=== PATIENT | female | born 1960 | race Caucasian/White ===

== ENCOUNTER 2017-01-14 11:26 | Emergency (ER) | payer MEDICAID ==
[~2017-01-14] VITALS: Ht 162.6 cm; Wt 49.1 kg
[~2017-01-14 11:26] MED LIST: CARB200T PO; CLON1TAB23 PO; PARO10TA56 PO; RISP1TAB45 PO; TRAZ50TA18 PO
[2017-01-14] MEDS ORDERED: ALBUTEROL/IPRATROPIUM 2.5MG/0.5MG, 3 ML NPPB ONE (12:30)
[2017-01-14] MEDS ORDERED: ALBUTEROL/IPRATROPIUM 2.5MG/0.5MG, 3 ML ONE (12:46)
[2017-01-14 12:53] VITALS: BP 116/81
== END 2017-01-14 13:12 | disposition home or self-care (01) ==
LOC: ED 12:10
DX: J44.1 Chronic obstructive pulmonary disease with (acute) exacerbation (principal); J20.9 Acute bronchitis, unspecified; F17.210 Nicotine dependence, cigarettes, uncomplicated; E87.6 Hypokalemia; E87.1 Hypo-osmolality and hyponatremia
CPT/HCPCS: 71020; 93005; 94640; 99284; J7512; J7620

== ENCOUNTER 2017-03-17 15:54 | Observation (INO) | payer MEDICAID ==
[~2017-03-17] VITALS: Ht 167.6 cm; Wt 50.0 kg
[2017-03-17] MEDS ORDERED: LORazepam 2 MG/ML, 1ML ONE (16:29)
[2017-03-17] MEDS ORDERED: LORazepam 2 MG/ML, 1ML IM ONE (16:30)
[2017-03-17 16:58] LABS: AMPHETAMINE SCREEN, URINE Negative (Negative); BARBITURATE SCREEN, URINE Negative (Negative); BENZODIAZEPINE SCREEN, URINE Negative (Negative); CANNABINOID SCREEN, URINE Positive (Negative); COCAINE SCREEN, URINE Negative (Negative); METHADONE SCREEN, URINE Negative (Negative); OPIATE SCREEN, URINE Negative (Negative)
[2017-03-17 17:30] LABS: BASOPHILS # (AUTO) 0.02 x10^3/uL (0-0.1); BASOPHILS % (AUTO) 0 % (0-1); EOSINOPHILS # (AUTO) 0.04 x10^3/uL (0-0.4); EOSINOPHILS % (AUTO) 0 % (1-7); LYMPHOCYTES # (AUTO) 0.25 x10^3/uL (1-3.4); LYMPHOCYTES % (AUTO) 2 % (22-44); MD NO; MEAN CORPUSCULAR HEMOGLOBIN 29.5 pg (27.0-34.8); MEAN CORPUSCULAR HGB CONC 32.9 g/dL (32.4-35.8); MEAN CORPUSCULAR VOLUME 89.8 fL (80-100); MEAN PLATELET VOLUME 7.5 fL (7.4-10.4); MONOCYTES # (AUTO) 0.76 x10^3/uL (0.2-0.8); MONOCYTES % (AUTO) 7 % (2-9); NEUTROPHILS # (AUTO) 9.25 x10^3/uL (1.8-6.8); NEUTROPHILS % (AUTO) 90 % (42-75); PLATELET COUNT 211 x10^3/uL (130-400); RED CELL DISTRIBUTION WIDTH 13.9 % (9.6-15.2)
[2017-03-17 17:43] LABS: ALANINE AMINOTRANSFERASE 55 U/L (12-78); ALBUMIN 4.1 g/dL (3.4-5.0); ANION GAP 9 mmol/L (5-15); CALCIUM 8.1 mg/dL (8.5-10.1); CHLORIDE 96 mmol/L (98-107); CREATININE 0.55 mg/dL (0.55-1.02); SALICYLATE LEVEL 4.5 mg/dL (2.8-20.0)
[2017-03-17 17:45] LABS: ALKALINE PHOSPHATASE 138 U/L (45-117); BILIRUBIN,TOTAL 0.7 mg/dL (0.2-1.0); TOTAL PROTEIN 7.8 g/dL (6.4-8.2)
[2017-03-17 17:47] LABS: ACETAMINOPHEN < 2 mcg/mL (10-30)
[2017-03-17] MEDS ORDERED: POTASSIUM CHLORIDE 20 MEQ TAB.ER.PRT PO ONE (22:30)
[2017-03-17] MEDS ORDERED: ONDANSETRON ODT 4 MG PO PRN (23:00)
[2017-03-17] MEDS ORDERED: POTASSIUM CHLORIDE 20 MEQ TAB.ER.PRT ONE (23:02)
[2017-03-17] MEDS ORDERED: LORazepam 1MG TABLET ONE (23:02)
[2017-03-17] MEDS: LORazepam 1MG TABLET PO PRN (23:05)
[2017-03-17 23:19] VITALS: BP 138/83
[2017-03-17] MEDS ORDERED: OLANZAPINE 5 MG TABLET ONE (23:42)
[2017-03-18] MEDS ORDERED: ZIPRASIDONE 20 MG INJ IM ONE ×4 (00:08→10:30)
[2017-03-18] MEDS ORDERED: ALBUTEROL SULFATE 2.5 MG/3 ML NPPB PRN ×3 (04:30→15:00)
[2017-03-18 07:00] VITALS: BP 127/84
[2017-03-18] MEDS ORDERED: OLANZAPINE 5 MG TABLET ONE (08:00)
[2017-03-18] MEDS: LORazepam 1MG TABLET PO PRN ×2 (08:02→16:10)
[2017-03-18 08:55] LABS: MEAN CORPUSCULAR HEMOGLOBIN 29.7 pg (27.0-34.8); MEAN CORPUSCULAR HGB CONC 33.1 g/dL (32.4-35.8); MEAN CORPUSCULAR VOLUME 89.8 fL (80-100); MEAN PLATELET VOLUME 7.7 fL (7.4-10.4); PLATELET COUNT 185 x10^3/uL (130-400); RED CELL DISTRIBUTION WIDTH 13.7 % (9.6-15.2)
[2017-03-18] MEDS ORDERED: OLANZAPINE 5 MG TABLET PO SCH (09:00)
[2017-03-18 09:06] LABS: ANION GAP 8 mmol/L (5-15); CALCIUM 8.2 mg/dL (8.5-10.1); CHLORIDE 99 mmol/L (98-107); CREATININE 0.69 mg/dL (0.55-1.02)
[2017-03-18 09:27] LABS: BASOPHILS # (AUTO) 0.01 x10^3/uL (0-0.1); BASOPHILS % (AUTO) 0 % (0-1); EOSINOPHILS # (AUTO) 0.13 x10^3/uL (0-0.4); EOSINOPHILS % (AUTO) 2 % (1-7); LYMPHOCYTES % (AUTO) 8 % (22-44); MD SCAN; MONOCYTES % (AUTO) 10 % (2-9); NEUTROPHILS % (AUTO) 80 % (42-75)
[2017-03-18] MEDS ORDERED: ALBUTEROL SULFATE 2.5 MG/3 ML ONE (13:45)
[2017-03-18] MEDS ORDERED: GUAIFENESIN 200 MG TABLET PO SCH (16:00)
[2017-03-18] MEDS ORDERED: RISPERIDONE 1 MG TABLET PO SCH (21:00)
[2017-03-18] MEDS ORDERED: OXCARBAZEPINE 300MG TABLET PO SCH (21:00)
== END 2017-03-18 19:30 ==
LOC: ED 17:13 → EDIP 22:04 → 2N 23:16
PROVIDERS: ADMIT Hospitalist; ATTEND Hospitalist
DX: F23 Brief psychotic disorder (principal); F22 Delusional disorders; F31.9 Bipolar disorder, unspecified; F12.10 Cannabis abuse, uncomplicated; E87.1 Hypo-osmolality and hyponatremia; E87.6 Hypokalemia; R73.9 Hyperglycemia, unspecified; R74.0 Nonspecific elevation of levels of transaminase and lactic acid dehydrogenase [LDH]; R74.8 Abnormal levels of other serum enzymes
CPT/HCPCS: 36415; 71045; 80048; 80053; 80307; 80329; 82140; 83735; 85025; 93005; 94640; 96372; 99285; G0378; J2060; J3486; J7613; G0480

== ENCOUNTER 2017-03-23 09:46 | Emergency (ER) | payer MEDICAID ==
[~2017-03-23] VITALS: Ht 167.6 cm; Wt 80.0 kg
[2017-03-23 10:00] VITALS: BP 120/76
[2017-03-23] MEDS ORDERED: LORazepam 2 MG/ML, 1ML IVPush ONE (10:00)
[2017-03-23] MEDS ORDERED: SODIUM CHLORIDE 0.9% 1,000ML IVBOLUS ONE (10:00)
[2017-03-23] MEDS ORDERED: LORazepam 2 MG/ML, 1ML ONE (10:20)
[2017-03-23 10:37] LABS: RAPID INFLUENZA A Negative (Negative); RAPID INFLUENZA B Negative (Negative)
[2017-03-23 10:37] LABS: BASOPHILS # (AUTO) 0.03 x10^3/uL (0-0.1); BASOPHILS % (AUTO) 0 % (0-1); EOSINOPHILS # (AUTO) 0.21 x10^3/uL (0-0.4); EOSINOPHILS % (AUTO) 3 % (1-7); LYMPHOCYTES # (AUTO) 0.37 x10^3/uL (1-3.4); LYMPHOCYTES % (AUTO) 5 % (22-44); MD SCAN; MEAN CORPUSCULAR HEMOGLOBIN 29.6 pg (27.0-34.8); MEAN CORPUSCULAR HGB CONC 32.9 g/dL (32.4-35.8); MEAN PLATELET VOLUME 7.4 fL (7.4-10.4); MONOCYTES # (AUTO) 0.53 x10^3/uL (0.2-0.8); MONOCYTES % (AUTO) 7 % (2-9); NEUTROPHILS # (AUTO) 6.59 x10^3/uL (1.8-6.8); NEUTROPHILS % (AUTO) 85 % (42-75); PLATELET COUNT 266 x10^3/uL (130-400); RED BLOOD COUNT 4.61 x10^6/uL (3.82-5.3); RED CELL DISTRIBUTION WIDTH 13.6 % (9.6-15.2)
[2017-03-23 10:46] LABS: ALANINE AMINOTRANSFERASE 35 U/L (12-78); ALBUMIN 3.6 g/dL (3.4-5.0); ANION GAP 7 mmol/L (5-15); CALCIUM 8.3 mg/dL (8.5-10.1); CHLORIDE 101 mmol/L (98-107); CREATININE 0.53 mg/dL (0.55-1.02); SALICYLATE LEVEL 2.8 mg/dL (2.8-20.0)
[2017-03-23 10:48] LABS: ACETAMINOPHEN < 2 mcg/mL (10-30); ALKALINE PHOSPHATASE 124 U/L (45-117); BILIRUBIN,TOTAL 0.5 mg/dL (0.2-1.0); TOTAL PROTEIN 7.2 g/dL (6.4-8.2)
[2017-03-23 11:05] LABS: AMPHETAMINE SCREEN, URINE Negative (Negative); BARBITURATE SCREEN, URINE Negative (Negative); BENZODIAZEPINE SCREEN, URINE Negative (Negative); CANNABINOID SCREEN, URINE Negative (Negative); COCAINE SCREEN, URINE Negative (Negative); OPIATE SCREEN, URINE Negative (Negative)
[2017-03-23 11:13] LABS: METHADONE SCREEN, URINE Negative (Negative)
== END 2017-03-23 12:40 ==
LOC: ED 09:54
DX: F29 Unspecified psychosis not due to a substance or known physiological condition (principal); F22 Delusional disorders; J44.9 Chronic obstructive pulmonary disease, unspecified; Z00.00 Encounter for general adult medical examination without abnormal findings
CPT/HCPCS: 36415; 71045; 80053; 80307; 80329; 82140; 85025; 87400; 93005; 96361; 96374; 99285; J2060; J7030; G0480

== ENCOUNTER 2017-04-30 21:14 | Emergency (ER) | payer MEDICAID ==
[~2017-04-30] VITALS: Ht 165.1 cm; Wt 53.9 kg
[2017-04-30 21:14] VITALS: BP 129/79
[~2017-04-30 21:14] MED LIST changes: +OXCA150T PO
== END 2017-05-01 00:04 | disposition home or self-care (01) ==
LOC: ED 23:46
DX: S22.42XA Multiple fractures of ribs, left side, initial encounter for closed fracture (principal); M79.662 Pain in left lower leg; J44.9 Chronic obstructive pulmonary disease, unspecified; E87.1 Hypo-osmolality and hyponatremia; Z88.2 Allergy status to sulfonamides; Z88.8 Allergy status to other drugs, medicaments and biological substances; W06.XXXA Fall from bed, initial encounter; Y93.89 Activity, other specified; Y92.89 Other specified places as the place of occurrence of the external cause; Y99.9 Unspecified external cause status
CPT/HCPCS: 99284

== ENCOUNTER 2017-06-22 15:53 | Emergency (ER) | payer MEDICAID | END 2017-06-22 18:52 | disposition left against medical advice (07) | LOC: ED 18:40 | DX: R07.81 Pleurodynia (principal); Z53.21 Procedure and treatment not carried out due to patient leaving prior to being seen by health care provider; Y04.0XXA Assault by unarmed brawl or fight, initial encounter; Y93.89 Activity, other specified; Y99.8 Other external cause status; Y92.89 Other specified places as the place of occurrence of the external cause ==

== ENCOUNTER 2017-06-30 20:16 | Emergency (ER) | payer MEDICAID ==
[~2017-06-30] VITALS: Ht 152.4 cm; Wt 52.7 kg
[2017-06-30 20:17] VITALS: BP 100/64
[2017-06-30] MEDS ORDERED: BACITRACIN ZINC OINT 500U/GM, 0.9 GM ONE (21:03)
== END 2017-06-30 22:16 ==
LOC: ED 20:40
DX: S92.002A Unspecified fracture of left calcaneus, initial encounter for closed fracture (principal); L03.031 Cellulitis of right toe; J44.9 Chronic obstructive pulmonary disease, unspecified; W01.0XXA Fall on same level from slipping, tripping and stumbling without subsequent striking against object, initial encounter; Y93.89 Activity, other specified; Y92.89 Other specified places as the place of occurrence of the external cause; Y99.8 Other external cause status
CPT/HCPCS: 29515; 99284

== ENCOUNTER 2019-05-30 12:39 | Emergency (ER) | payer SELFPAY ==
[~2019-05-30] VITALS: Ht 157.5 cm; Wt 45.0 kg
[~2019-05-30 12:39] MED LIST changes: -OXCA150T PO; +OXCA150T18 PO; -TRAZ50TA18 PO; +TRAZ50TA66 PO
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
[2019-05-30] MEDS ORDERED: ZIPRASIDONE 20MG CAPSULE PO SCH (13:00)
--- NOTE | 2019-05-30 13:05 | NUR ---
SBAR RPT REC'D FROM CAROLE STEPHENS. PT CARE ASSUMED. POC DISCUSED WITH DR. JEAN. MEAL TRAY ORDERED.
[2019-05-30] MEDS ORDERED: ZIPRASIDONE 20MG CAPSULE ONE (13:15)
--- NOTE | 2019-05-30 13:24 | NUR ---
PT OOB TO BSC, NO VOID. PT TO SINK AND INSTRUCTED TO WASH HANDS. HANDS WITH SCATTERED SMALL ABRASSIONS NOTED. PT WITH RAMBLING SPEECH AND BOUTS OF VERBAL ABUSE TO THIS RN. "YOU FUCKING BITCH" PT RTD TO BED, WARM BLANKET PROVIDED. MONITORS IN PLACE. PT IN FORMED THAT A LUNCH TRAY HAS BEEN ORDERED.
[2019-05-30 13:27] VITALS: BP 119/67
--- NOTE | 2019-05-30 13:34 | NUR ---
MEAL TRAY PROVIDED.
--- NOTE | 2019-05-30 13:45 | NUR ---
RECEIVED REPORT FROM HAROON. PT LAYING ON EDVIN WANTING TO "GO TO SLEEP NOW", RESPONDS TO STAFF QUESTIONS, NAD, DIET TRAY GIVEN BY OUTGOING RN, NO OTHER NEEDS AT THIS TIME, CALL LIGHT WITHIN REACH.
--- NOTE | 2019-05-30 14:43 | NUR ---
PT OOB MULT TIMES (DIGGING THROUGH BELONGINGS, CLEANING MAKEUP BRUSHES, "ORGANIZING MY THINGS"), PT AMBULATES STEADILY & RESPONDS APPROP TO STAFF, NAD, NO NEEDS AT THIS TIME, DR JEAN AWARE OF PT STATUS.
--- NOTE | 2019-05-30 14:55 | NUR ---
PT SITTING ON FLOOR WITH BOTH AMBU-BAGS MIXED IN PERSONAL BELONGINGS AFTER STUFFING DISPOABLE GLOVES INTO SINK WITH WATER RUNNING, SECURITY CALLED TO ASSIST PT WITH DC, PT ACCOMPANIED OUT OF FACILITY WITH ALL PERSONAL BELONGINGS & DC INSTRUCTIONS/RX.
[2019-05-30] MEDS ORDERED: FLUT16SP24 NS (19:24)
== END 2019-05-30 15:14 | disposition home or self-care (01) ==
LOC: ED 13:17
DX: Z00.00 Encounter for general adult medical examination without abnormal findings (principal); F29 Unspecified psychosis not due to a substance or known physiological condition; F17.200 Nicotine dependence, unspecified, uncomplicated; Z90.89 Acquired absence of other organs
CPT/HCPCS: 71045; 99283

== ENCOUNTER 2019-05-30 19:14 | Emergency (ER) | payer SELFPAY ==
[~2019-05-30] VITALS: Ht 165.1 cm; Wt 50.0 kg
[2019-05-30 19:16] VITALS: BP 105/69
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
[2019-05-30] MEDS ORDERED: FLUT16SP24 NS (19:24)
--- NOTE | 2019-05-30 19:30 | NUR ---
PT AMBULATORY TO & FROM BEDOYA BR W/OUT INCIDENT. GAIT QUICK AND STEADY
--- NOTE | 2019-05-30 19:50 | NUR ---
PT TORE UP HER DC DOCUMENT AND THREW THE PIECES ON THE FLOOR. STATES "I DON'T AGREE WITH THIS" "YOU ARE LIARS". PT WAS SLOW TO GATHER HER BELONGNINGS TO LEAVE. HOUSE SUP WAS STANDING BY. SECURITY WAS NOTIFIED. PT ESCORTED TO EXIT.
== END 2019-05-30 20:04 | disposition home or self-care (01) ==
LOC: ED 19:19
DX: F22 Delusional disorders (principal); F98.9 Unspecified behavioral and emotional disorders with onset usually occurring in childhood and adolescence; J44.9 Chronic obstructive pulmonary disease, unspecified; Z72.9 Problem related to lifestyle, unspecified
CPT/HCPCS: 99283

== ENCOUNTER 2019-06-07 11:49 | Emergency (ER) | payer SELFPAY ==
[~2019-06-07] VITALS: Ht 165.1 cm; Wt 44.5 kg
[~2019-06-07 11:49] MED LIST changes: +FLUT16SP24 NS
[2019-06-07 11:53] VITALS: BP 153/91
--- NOTE | 2019-06-07 12:05 | NUR ---
MARIA D HAS EVALUATED AND D/C'D FROM TRIAGE
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
[2019-06-08] MEDS ORDERED: PARO10TA56 PO (20:40)
[2019-06-08] MEDS ORDERED: OXCA150T3 PO (20:41)
== END 2019-06-07 12:39 | disposition home or self-care (01) ==
LOC: ED 12:12
DX: Z00.00 Encounter for general adult medical examination without abnormal findings (principal)
CPT/HCPCS: 99281

== ENCOUNTER 2019-06-08 19:16 | Emergency (ER) | payer SELFPAY ==
[~2019-06-08] VITALS: Ht 165.1 cm; Wt 50.0 kg
[2019-06-08 19:18] VITALS: BP 137/81
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
--- NOTE | 2019-06-08 19:53 | NUR ---
pt refused wound care at this time.
--- NOTE | 2019-06-08 19:54 | NUR ---
all belongings(including denturex1) put into 1 bad and put into the locker at this time. room secure.
--- NOTE | 2019-06-08 19:54 | NUR ---
food and water provided at this time.
[2019-06-08] MEDS ORDERED: ZIPRASIDONE 20 MG INJ IM ONE ×2 (19:58→20:00)
--- NOTE | 2019-06-08 20:07 | NUR ---
PT REFUSED TO TAKE MED AT THIS TIME. PA NOTIFIED. MED HOLD PER PA VERBAL ORDER.
[2019-06-08 20:11] LABS: BASOPHILS # (AUTO) 0.05 x10^3/uL (0-0.1); BASOPHILS % (AUTO) 0 % (0-1); EOSINOPHILS # (AUTO) 0.03 x10^3/uL (0-0.4); EOSINOPHILS % (AUTO) 0 % (1-7); LYMPHOCYTES # (AUTO) 1.03 x10^3/uL (1-3.4); LYMPHOCYTES % (AUTO) 8 % (22-44); MD NO; MEAN CORPUSCULAR HEMOGLOBIN 30.3 pg (27.0-34.8); MEAN CORPUSCULAR HGB CONC 32.7 g/dL (32.4-35.8); MEAN CORPUSCULAR VOLUME 92.5 fL (80-100); MEAN PLATELET VOLUME 7.6 fL (7.4-10.4); MONOCYTES # (AUTO) 0.72 x10^3/uL (0.2-0.8); MONOCYTES % (AUTO) 6 % (2-9); NEUTROPHILS # (AUTO) 10.45 x10^3/uL (1.8-6.8); NEUTROPHILS % (AUTO) 85 % (42-75); PLATELET COUNT 306 x10^3/uL (130-400); RED CELL DISTRIBUTION WIDTH 13.9 % (9.6-15.2)
[2019-06-08 20:19] LABS: ALANINE AMINOTRANSFERASE 46 U/L (12-78); ALBUMIN 3.7 g/dL (3.4-5.0); ANION GAP 9 mmol/L (5-15); CALCIUM 8.6 mg/dL (8.5-10.1); CHLORIDE 103 mmol/L (98-107); CREATININE 0.62 mg/dL (0.55-1.02); SALICYLATE LEVEL 2.9 mg/dL (2.8-20.0)
[2019-06-08 20:22] LABS: ALKALINE PHOSPHATASE 108 U/L (45-117); BILIRUBIN,TOTAL 0.6 mg/dL (0.2-1.0); TOTAL PROTEIN 7.2 g/dL (6.4-8.2)
[2019-06-08] MEDS ORDERED: PARO10TA56 PO (20:40)
[2019-06-08] MEDS ORDERED: OXCA150T3 PO (20:41)
--- NOTE | 2019-06-08 21:20 | NUR ---
pt sleeping in [facility]. resps even and unlabored. sitter monitoring from hallway for safety. room remains secure.
--- NOTE | 2019-06-08 22:25 | NUR ---
pt is up and agitated at this time. pt requested med. pt medicated per emar. pt tolrated well. sitter monitoring from [facility] for safety. room remains secure.
--- NOTE | 2019-06-08 22:44 | NUR ---
warm blanket given at this time.
--- NOTE | 2019-06-08 22:59 | NUR ---
pt amb to br and back to room with one miner assistant. pt provided urine sample and ua sent.
--- NOTE | 2019-06-08 23:00 | NUR ---
some snacks provided at this time per request at this time.
[2019-06-08 23:21] LABS: AMPHETAMINE SCREEN, URINE Negative (Negative); BARBITURATE SCREEN, URINE Negative (Negative); BENZODIAZEPINE SCREEN, URINE Negative (Negative); CANNABINOID SCREEN, URINE Positive (Negative); COCAINE SCREEN, URINE Negative (Negative); METHADONE SCREEN, URINE Negative (Negative); OPIATE SCREEN, URINE Negative (Negative)
[2019-06-09] MEDS ORDERED: LORazepam 1MG TABLET PO ONE
[2019-06-09] MEDS ORDERED: LORazepam 1MG TABLET ONE ×2 (00:01→08:42)
--- NOTE | 2019-06-09 00:04 | NUR ---
pt is agitated. pt medicated per emar. pt tolerated well.
--- NOTE | 2019-06-09 00:08 | NUR ---
snacks and juice provided at this time.
--- NOTE | 2019-06-09 00:58 | NUR ---
report given to vineet parra.
--- NOTE | 2019-06-09 01:03 | NUR ---
Report received from CAROLE Goodwin. This RN to assume care.
[2019-06-09] MEDS ORDERED: ZIPRASIDONE 20 MG INJ IM ONE ×2 (01:06→01:30)
--- NOTE | 2019-06-09 01:14 | NUR ---
Patient agitated and requesting her belongings. Advised patient that she cannot have her belongings at this time. Medicated patient per mar. Sitter outside room, room secured, belongings in locked cabinet.
--- NOTE | 2019-06-09 01:18 | NUR ---
Provided water, maternity underwear, and sanitary pad.
--- NOTE | 2019-06-09 02:45 | NUR ---
Patient sleeping in rney. Respirations even and unlabored. Sitter outside, room secured, belongings locked in cabinet.
--- NOTE | 2019-06-09 03:18 | NUR ---
DECLINED BY 3E DUE TO SELF PAY
--- NOTE | 2019-06-09 03:19 | NUR ---
PT SELF PAY ONLY. REFERRAL PACKET FAXED TO [facility]. CONFIRMATION FAX RECEIVED AND PLACED IN PACKET.
--- NOTE | 2019-06-09 03:54 | NUR ---
Patient sleeping in rney. Respirations even and unlabored. Sitter outside, room secured, belongings locked in cabinet.
--- NOTE | 2019-06-09 04:43 | NUR ---
Patient sleeping in rney. Respirations even and unlabored. Sitter outside, room secured, belongings locked in cabinet.
--- NOTE | 2019-06-09 05:31 | NUR ---
Patient sleeping in rney. Respirations even and unlabored. Sitter outside, room secured, belongings locked in cabinet.
--- NOTE | 2019-06-09 07:00 | NUR ---
Bedside report for Candelaria Rn With Assessment patient deep asleep Room secured with psychiatric precautions Sitter within direct line of sight
[2019-06-09] MEDS ORDERED: NEOSPORIN OINT. PKT 1 PACKET ONE (07:06)
--- NOTE | 2019-06-09 07:36 | NUR ---
Emt at bedside-abrasions cleansed and dressed Moved to hospital bed with new Pillow & provided with breakfast Patient alert & oriented but hyperverbal, tangential & unable to sit still. Provider aked for PRN
[2019-06-09] MEDS: LORazepam 1MG TABLET PO PRN ×2 (08:45→09:10)
--- NOTE | 2019-06-09 09:05 | NUR ---
Received report and assumed patient care. Administered anxiolytic medications. Patient has asked to use the bathroom twice in the 15 minutes RN has been here. Awaiting pyschiatric evaluation.
--- NOTE | 2019-06-09 09:19 | NUR ---
Patient is on her 5th visit to the bathroom in 20 minutes.
[2019-06-09] MEDS ORDERED: OXCARBAZEPINE 150 MG TABLET PO ONE (12:30)
[2019-06-09] MEDS ORDERED: RISPERIDONE 2 MG TABLET PO ONE (12:30)
[2019-06-09] MEDS ORDERED: PAROXETINE 10 MG TABLET PO ONE (12:30)
[2019-06-09] MEDS ORDERED: RISPERIDONE 2 MG TABLET ONE (12:48)
--- NOTE | 2019-06-09 13:21 | NUR ---
Patient evaluated by psychiatric provider, orders placed for discharge, requested medications from pharmacy. Patient informed of plan. Awaiting medications
== END 2019-06-09 13:53 | disposition home or self-care (01) ==
LOC: ED 20:00
DX: F22 Delusional disorders (principal); F20.89 Other schizophrenia; F31.9 Bipolar disorder, unspecified; Z72.9 Problem related to lifestyle, unspecified
CPT/HCPCS: 36415; 80053; 80307; 85025; 96372; 99284; J3486

== ENCOUNTER 2019-06-12 06:26 | Emergency (ER) | payer SELFPAY ==
[~2019-06-12] VITALS: Ht 165.1 cm; Wt 50.0 kg
[~2019-06-12 06:26] MED LIST changes: +OXCA150T3 PO
[2019-06-12 06:32] VITALS: BP 129/71
--- NOTE | 2019-06-12 07:01 | NUR ---
PT IN EDVIN AT THIS TIME; AWAITING ORDERS FROM ERP.
[2019-06-12] MEDS ORDERED: LORazepam 1MG TABLET ONE (07:12)
--- NOTE | 2019-06-12 07:14 | NUR ---
pt medicated per mar
[2019-06-12] MEDS ORDERED: LORazepam 1MG TABLET PO ONE (07:30)
--- NOTE | 2019-06-12 07:41 | NUR ---
PT D/C WITH D/C SUMMARY AND SCRIPTS. PT FINGERS BANDAGED WITH BANDAID. PT QUESTIONS ANSWERED. PT DENIES ANY OTHER NEEDS PERTAINING TO THIS VISIT. PT AMBULATES WITH STEADY GAIT TO AMBULANCE BAY FOR D/C HOME.
== END 2019-06-12 07:44 | disposition home or self-care (01) ==
LOC: ED 06:47
DX: F41.9 Anxiety disorder, unspecified (principal); Z76.0 Encounter for issue of repeat prescription; J44.9 Chronic obstructive pulmonary disease, unspecified; F17.200 Nicotine dependence, unspecified, uncomplicated; Z90.89 Acquired absence of other organs
CPT/HCPCS: 99282; 99283

== ENCOUNTER 2019-06-12 23:00 | Emergency (ER) | payer SELFPAY ==
[~2019-06-12] VITALS: Ht 154.9 cm; Wt 45.5 kg
[2019-06-12 23:01] VITALS: BP 130/78
== END 2019-06-12 23:43 ==
LOC: ED 23:36
DX: T14.8XXA Other injury of unspecified body region, initial encounter (principal); M79.672 Pain in left foot; M79.671 Pain in right foot; J44.9 Chronic obstructive pulmonary disease, unspecified; F17.200 Nicotine dependence, unspecified, uncomplicated; Z72.9 Problem related to lifestyle, unspecified; X58.XXXA Exposure to other specified factors, initial encounter; Y93.89 Activity, other specified; Y92.89 Other specified places as the place of occurrence of the external cause; Y99.8 Other external cause status
CPT/HCPCS: 99281; 99282

== ENCOUNTER 2019-06-14 22:29 | Emergency (ER) | payer OTHER ==
[~2019-06-14] VITALS: Ht 162.6 cm; Wt 61.4 kg
[2019-06-14 22:35] VITALS: BP 137/78
[2019-06-14] MEDS ORDERED: LORazepam 0.5MG TABLET ONE (22:50)
[2019-06-14] MEDS ORDERED: LORazepam 0.5MG TABLET PO ONE (23:00)
== END 2019-06-14 23:38 | disposition home or self-care (01) ==
LOC: ED 23:10
DX: J00 Acute nasopharyngitis [common cold] (principal); Z72.9 Problem related to lifestyle, unspecified; F17.210 Nicotine dependence, cigarettes, uncomplicated; J44.9 Chronic obstructive pulmonary disease, unspecified; F20.9 Schizophrenia, unspecified
CPT/HCPCS: 99283

== ENCOUNTER 2019-06-21 15:50 | Emergency (ER) | payer OTHER ==
[~2019-06-21] VITALS: Ht 165.1 cm; Wt 50.0 kg
[2019-06-21 15:55] VITALS: BP 137/70
--- NOTE | 2019-06-21 16:13 | NUR ---
RN ORDERED MEDICATION WITH PHARMACY.
--- NOTE | 2019-06-21 16:19 | NUR ---
PT AMBULATED TO THE RESTROOM WITH A STEADY GAIT.
[2019-06-21] MEDS ORDERED: LORazepam 1MG TABLET ONE (16:26)
[2019-06-21] MEDS ORDERED: PAROXETINE 10 MG TABLET PO ONE (16:30)
[2019-06-21] MEDS ORDERED: OXCARBAZEPINE 300MG TABLET PO ONE (16:30)
[2019-06-21] MEDS ORDERED: LORazepam 1MG TABLET PO ONE (16:30)
--- NOTE | 2019-06-21 16:32 | NUR ---
PT MEDICATED PER EMAR. PT DISCHARGED HOME IN A STABLE CONDITION. DC INSTRUCTIONS WERE DISCUSSED WITH PT. PT HAS A FLIGHT OF IDEAS AND DID NOT WANT TO LISTEN. PRESCRIPTION SCRIPT WAS HANDED TO PT. PT ABULATED OUT OF ED WITH A STEADY GAIT.
== END 2019-06-21 16:34 | disposition home or self-care (01) ==
LOC: ED 16:25
DX: F31.9 Bipolar disorder, unspecified (principal); F29 Unspecified psychosis not due to a substance or known physiological condition; F20.9 Schizophrenia, unspecified; J44.9 Chronic obstructive pulmonary disease, unspecified; Z90.89 Acquired absence of other organs
CPT/HCPCS: 99284

== ENCOUNTER 2019-06-21 21:33 | Emergency (ER) | payer OTHER ==
[~2019-06-21] VITALS: Ht 154.9 cm; Wt 43.9 kg
--- NOTE | 2019-06-21 21:44 | NUR ---
THIS IS A 59Y F BIB EMS FROM [facility]ARE HOME. PT FELL OVER BACKPACK WHILE WAITING IN LINE. UPON ARRIVAL PT LETHARGIC BUT AROUSABLE TO PAINFUL STIMULI. NO OBVIOUS INJURY, NO OPEN WOUNDS. PT CONNECTED TO MONITORING VSS
--- NOTE | 2019-06-21 22:28 | NUR ---
PT BACK FROM CT RESTING ON EDVIN
[2019-06-21 23:06] VITALS: BP 122/86
--- NOTE | 2019-06-21 23:34 | NUR ---
PT CONTINUES TO SLEEP ON GURNEY RESP EVEN AND UNLABORED, D[place]
--- NOTE | 2019-06-22 00:58 | NUR ---
PT ASSISTED TO RESTROOM. PT VERBALIZES "I JUST WANT TO HAVE A WHEELCHAIR AND BE SERVED FOR THE REST OF MY LIFE AND BE TAKEN CARE OF." PT EDUCATED ON PLAN FOR DC AT THIS TIME.
== END 2019-06-22 01:43 | disposition home or self-care (01) ==
LOC: ED 23:46
DX: S09.90XA Unspecified injury of head, initial encounter (principal); D32.9 Benign neoplasm of meninges, unspecified; J44.9 Chronic obstructive pulmonary disease, unspecified; W01.10XA Fall on same level from slipping, tripping and stumbling with subsequent striking against unspecified object, initial encounter; Y93.89 Activity, other specified; Y92.89 Other specified places as the place of occurrence of the external cause; Y99.8 Other external cause status
CPT/HCPCS: 70450; 72125; 99285

== ENCOUNTER 2019-08-09 16:54 | Emergency (ER) | payer OTHER ==
[~2019-08-09] VITALS: Ht 165.1 cm; Wt 59.0 kg
[2019-08-09 18:23] LABS: BASOPHILS # (AUTO) 0.05 x10^3/uL (0-0.1); BASOPHILS % (AUTO) 1 % (0-1); EOSINOPHILS # (AUTO) 0.05 x10^3/uL (0-0.4); EOSINOPHILS % (AUTO) 1 % (1-7); LYMPHOCYTES # (AUTO) 0.83 x10^3/uL (1-3.4); LYMPHOCYTES % (AUTO) 17 % (22-44); MD NO; MEAN CORPUSCULAR HEMOGLOBIN 31.1 pg (27.0-34.8); MEAN CORPUSCULAR HGB CONC 32.9 g/dL (32.4-35.8); MEAN CORPUSCULAR VOLUME 94.6 fL (80-100); MEAN PLATELET VOLUME 7.7 fL (7.4-10.4); MONOCYTES # (AUTO) 0.57 x10^3/uL (0.2-0.8); MONOCYTES % (AUTO) 12 % (2-9); NEUTROPHILS # (AUTO) 3.27 x10^3/uL (1.8-6.8); NEUTROPHILS % (AUTO) 69 % (42-75); PLATELET COUNT 218 x10^3/uL (130-400); RED BLOOD COUNT 3.62 x10^6/uL (3.82-5.3); RED CELL DISTRIBUTION WIDTH 15.5 % (9.6-15.2)
[2019-08-09 18:26] LABS: INTERNATIONAL NORMALIZED RATIO 0.92 (0.93-1.1); PROTHROMBIN TIME 9.7 Seconds (9.6-11.5)
[2019-08-09 18:27] LABS: ALANINE AMINOTRANSFERASE 52 U/L (12-78); ANION GAP 7 mmol/L (5-15); CALCIUM 7.8 mg/dL (8.5-10.1); CHLORIDE 100 mmol/L (98-107); CREATININE 0.55 mg/dL (0.55-1.02)
[2019-08-09 18:32] LABS: ALKALINE PHOSPHATASE 175 U/L (45-117); BILIRUBIN,TOTAL 0.4 mg/dL (0.2-1.0); TOTAL PROTEIN 6.2 g/dL (6.4-8.2); TROPONIN I < 0.015 ng/mL (0.000-0.045)
[2019-08-09 19:20] VITALS: BP 132/70
== END 2019-08-09 20:31 | disposition home or self-care (01) ==
LOC: ED 18:29
DX: R60.0 Localized edema (principal); J44.9 Chronic obstructive pulmonary disease, unspecified; R94.31 Abnormal electrocardiogram [ECG] [EKG]; F20.9 Schizophrenia, unspecified; F17.200 Nicotine dependence, unspecified, uncomplicated; Z90.89 Acquired absence of other organs
CPT/HCPCS: 36415; 71045; 80053; 83880; 84484; 85025; 85610; 93005; 93970; 99285

== ENCOUNTER → 2019-08-28 | Outpatient (CLI) | payer OTHER ==
[~2019-08-28] MED LIST changes: +OMNIPAQUE 350 MG/ML, 100ML BOTTLE ONE
== END | disposition home or self-care (01) ==
LOC: RAD 13:47
PROVIDERS: ATTEND Internal Medicine Endocrinology, Diabetes & Metabolism
DX: R59.1 Generalized enlarged lymph nodes (principal); J98.4 Other disorders of lung; R60.0 Localized edema
CPT/HCPCS: 74177; Q9967

== ENCOUNTER 2019-09-20 08:36 | Outpatient (CLI) | payer OTHER ==
[~2019-09-20 08:36] MED LIST changes: -OMNIPAQUE 350 MG/ML, 100ML BOTTLE ONE
== END 2019-09-20 23:59 | disposition home or self-care (01) ==
LOC: CVU 08:36
PROVIDERS: ATTEND Internal Medicine Endocrinology, Diabetes & Metabolism
DX: I34.0 Nonrheumatic mitral (valve) insufficiency (principal); E83.51 Hypocalcemia; F20.9 Schizophrenia, unspecified; I51.7 Cardiomegaly; Z72.0 Tobacco use
CPT/HCPCS: 93306; 93356

== ENCOUNTER 2020-03-08 11:53 | Emergency (ER) | payer MEDICAID, OTHER ==
[~2020-03-08] VITALS: Ht 165.1 cm; Wt 56.9 kg
[2020-03-08 12:01] VITALS: BP 95/59
[2020-03-08] MEDS ORDERED: FLUORESCEIN OPHTHALMIC 1 MG STRIP EACHEYE ONE (12:30)
[2020-03-08] MEDS ORDERED: PROPARACAINE OPHTH 0.5%, 15ML EACHEYE ONE (12:30)
[2020-03-08] MEDS ORDERED: PROPARACAINE OPHTH 0.5%, 15ML ONE (12:40)
[2020-03-08] MEDS ORDERED: FLUORESCEIN OPHTHALMIC 1 MG STRIP ONE (12:40)
--- NOTE | 2020-03-08 12:45 | NUR ---
This RN at bedside with provider for assessment. Pt sitting in chair, NADN. No tearing noted from left eye. Pt not touching eye.
--- NOTE | 2020-03-08 13:22 | NUR ---
Pt wants to leave to smoke. Pt educated that this is not an option. Pt updated on POC, awaiting opthomology consult.
== END 2020-03-08 13:35 | disposition home or self-care (01) ==
LOC: ED 12:22
DX: H20.022 Recurrent acute iridocyclitis, left eye (principal); J44.9 Chronic obstructive pulmonary disease, unspecified; Z88.9 Allergy status to unspecified drugs, medicaments and biological substances; Z88.2 Allergy status to sulfonamides; Z90.89 Acquired absence of other organs; Z79.899 Other long term (current) drug therapy
CPT/HCPCS: 99283

== ENCOUNTER 2020-05-05 15:33 | Inpatient (IN) | payer MEDICAID ==
[~2020-05-05] VITALS: Ht 165.1 cm; Wt 54.9 kg
--- NOTE | 2020-05-05 15:54 | NUR ---
PT BIBA C/O ANXIETY X 1WEEK. RAN OUT OF MEDS 1 WEEK AGO. PT PACING IN ROOM, WILL NOT KEEP MONITORING DEVICES ON. KEEPS STATING "I NEED ATIVAN."
[2020-05-05] MEDS ORDERED: LORazepam 1MG TABLET PO ONE (16:30)
[2020-05-05] MEDS ORDERED: LORazepam 1MG TABLET ONE (16:30)
[2020-05-05 16:49] LABS: BASOPHILS % (AUTO) 0 % (0-1); EOSINOPHILS % (AUTO) 1 % (1-7); LYMPHOCYTES % (AUTO) 14 % (22-44); MEAN CORPUSCULAR HGB CONC 34.6 g/dL (32.4-35.8); MEAN PLATELET VOLUME 6.9 fL (7.4-10.4); MONOCYTES % (AUTO) 11 % (2-9); NEUTROPHILS % (AUTO) 74 % (42-75); PLATELET COUNT 281 x10^3/uL (130-400); RED BLOOD COUNT 4.91 x10^6/uL (3.82-5.3); RED CELL DISTRIBUTION WIDTH 12.9 % (9.6-15.2)
[2020-05-05 16:50] LABS: MD NO
[2020-05-05 16:56] LABS: ALANINE AMINOTRANSFERASE 27 U/L (12-78); ALBUMIN 4.7 g/dL (3.4-5.0); ANION GAP 11 mmol/L (5-15); CALCIUM 9.2 mg/dL (8.5-10.1); CHLORIDE 96 mmol/L (98-107); CREATININE 0.61 mg/dL (0.55-1.02)
[2020-05-05 16:58] LABS: ALKALINE PHOSPHATASE 146 U/L (45-117); BILIRUBIN,TOTAL 0.4 mg/dL (0.2-1.0); SALICYLATE LEVEL < 1.7 mg/dL (2.8-20.0); TOTAL PROTEIN 8.2 g/dL (6.4-8.2)
--- NOTE | 2020-05-05 17:00 | NUR ---
PT ANXIOUSLY PACING AROUND ROOM & BEDOYA. REQUIRES FREQUENT REDIRECTION & REASSURANCE. MEDICATED PER EMAR. COMFORT MEASURES PROVIDED. CALL LIGHT WITHIN REACH. AWATING LAB RESULTS
[2020-05-05 17:27] LABS: AMPHETAMINE SCREEN, URINE Negative (Negative); BARBITURATE SCREEN, URINE Negative (Negative); BENZODIAZEPINE SCREEN, URINE Negative (Negative); CANNABINOID SCREEN, URINE Negative (Negative); COCAINE SCREEN, URINE Negative (Negative); METHADONE SCREEN, URINE Negative (Negative); OPIATE SCREEN, URINE Negative (Negative)
--- NOTE | 2020-05-05 18:26 | NUR ---
PT STATED "ATIVAN HELPED" NOW IS SLEEPING CALMLY ON GURNEY. NO NEEDS AT THIS TIME. CALL LIGHT WITHIN REACH.
--- NOTE | 2020-05-05 18:48 | NUR ---
REPORT GIVEN TO WISAM
--- NOTE | 2020-05-05 18:54 | NUR ---
PATIENT RESTING IN BED IN NAD. PATIENT REPORTS FEELING BETTER SINCE ARRIVAL TO THE ER. ASKS "CAN I TAKE A NAP?". BED RAILS UP FOR SAFETY. CALL WANG IN REACH. ADDITIONAL WARM BLANKETS PROVIDED. WILL CONTINUE TO MONITOR.
[2020-05-05 19:02] LABS: MICROSCOPIC AUTO
--- NOTE | 2020-05-05 20:13 | NUR ---
Assist RN: IV established for admission.
--- NOTE | 2020-05-05 20:23 | NUR ---
Report given to CAROLE Taylor. Patient to be transferred to room 405-1.
[2020-05-05] MEDS ORDERED: ONDANSETRON 2MG/ML, 2ML IVPush PRN (20:30)
[2020-05-05] MEDS ORDERED: hydrALAzine 20 MG/ML, 1ML IVPush PRN (20:30)
[2020-05-05] MEDS ORDERED: ACETAMINOPHEN 325 MG TABLET PO PRN (20:30)
[2020-05-05] MEDS ORDERED: OXCA600T10 PO (20:50)
[2020-05-05] MEDS ORDERED: albuterol (20:50)
[2020-05-05] MEDS ORDERED: RISP2TAB80 PO (20:50)
[2020-05-05] MEDS ORDERED: NICO-587 TP (20:50)
[2020-05-05] MEDS ORDERED: BUSP30TA PO (20:50)
[2020-05-05] MEDS ORDERED: CLON-364 PO (20:50)
[2020-05-05] MEDS ORDERED: ZOLP10TA PO (20:50)
[2020-05-05] MEDS ORDERED: HYDR50CA2 PO (20:50)
[2020-05-05] MEDS ORDERED: LORA-445 PO (20:50)
[2020-05-05] MEDS ORDERED: PARO40TA3 PO (20:50)
[2020-05-05 20:51] VITALS: BP 159/81
[2020-05-05] MEDS: LORazepam 1MG TABLET PO PRN (20:57)
[2020-05-06 03:24] VITALS: BP 119/74
[2020-05-06] MEDS: NICOTINE 14MG/24 HR PATCH.TD24 TD SCH ×2 (03:28→20:31)
[2020-05-06] MEDS: LORazepam 1MG TABLET PO PRN (03:29)
[2020-05-06 04:55] LABS: ANION GAP 8 mmol/L (5-15); CALCIUM 8.4 mg/dL (8.5-10.1); CHLORIDE 97 mmol/L (98-107); CREATININE 0.64 mg/dL (0.55-1.02)
[2020-05-06 07:32] VITALS: BP 161/91
[2020-05-06] MEDS ORDERED: 0.9 % SODIUM CHLORIDE 10 ML VIAL IV ONE (09:30)
[2020-05-06] MEDS: ALBUTEROL HFA 90 MCG/SPRAY INH PRN ×2 (11:09→19:21)
[2020-05-06] MEDS ORDERED: HYDROXYZINE PAMOATE 50MG CAP PO PRN (17:00)
[2020-05-06] MEDS: ENOXAPARIN 40 MG/0.4 ML SQ SCH (17:25)
[2020-05-06] MEDS: SODIUM CHLORIDE 0.9% 1,000 ML IV SCH (17:26)
[2020-05-06 19:04] VITALS: BP 167/91
[2020-05-06] MEDS: LORazepam 0.5MG TABLET PO SCH (20:31)
[2020-05-06] MEDS: RISPERIDONE 2 MG TABLET PO SCH (20:31)
[2020-05-06] MEDS: PAROXETINE 20 MG TABLET PO SCH (20:31)
[2020-05-06] MEDS: BUSPIRONE 10 MG TABLET PO SCH (20:31)
[2020-05-06] MEDS: ZOLPIDEM 10MG TABLET PO SCH (20:31)
[2020-05-06] MEDS: OXCARBAZEPINE 300MG TABLET PO SCH (20:32)
[2020-05-06] MEDS ORDERED: BUSPIRONE HCL PO SCH (21:00)
[2020-05-06] MEDS ORDERED: PAROXETINE HCL PO SCH (21:00)
[2020-05-06] MEDS ORDERED: OXCARBAZEPINE PO SCH (21:00)
[2020-05-07 01:31] VITALS: BP 123/78
[2020-05-07] MEDS: ALBUTEROL HFA 90 MCG/SPRAY INH PRN ×5 (02:12→21:11)
[2020-05-07 05:03] LABS: BASOPHILS % (AUTO) 2 % (0-1); EOSINOPHILS % (AUTO) 5 % (1-7); LYMPHOCYTES % (AUTO) 26 % (22-44); MEAN CORPUSCULAR HEMOGLOBIN 30.6 pg (27.0-34.8); MEAN CORPUSCULAR HGB CONC 33.7 g/dL (32.4-35.8); MONOCYTES % (AUTO) 14 % (2-9); NEUTROPHILS % (AUTO) 54 % (42-75); PLATELET COUNT 225 x10^3/uL (130-400); RED CELL DISTRIBUTION WIDTH 12.9 % (9.6-15.2)
[2020-05-07 05:04] LABS: MD NO
[2020-05-07 05:19] LABS: CHLORIDE 104 mmol/L (98-107)
[2020-05-07 05:26] LABS: ALANINE AMINOTRANSFERASE 24 U/L (12-78); ALBUMIN 3.4 g/dL (3.4-5.0); ALKALINE PHOSPHATASE 110 U/L (45-117); ANION GAP 6 mmol/L (5-15); BILIRUBIN,TOTAL 0.4 mg/dL (0.2-1.0); CREATININE 0.66 mg/dL (0.55-1.02); TOTAL PROTEIN 6.3 g/dL (6.4-8.2)
[2020-05-07] MEDS: SODIUM CHLORIDE 0.9% 1,000 ML IV SCH ×2 (05:50→17:16)
[2020-05-07 07:13] VITALS: BP 132/80
[2020-05-07] MEDS: RISPERIDONE 2 MG TABLET PO SCH ×2 (08:05→21:07)
[2020-05-07] MEDS: LORazepam 0.5MG TABLET PO SCH ×2 (08:05→21:07)
[2020-05-07] MEDS: BUSPIRONE 10 MG TABLET PO SCH ×2 (08:05→21:00)
[2020-05-07] MEDS: OXCARBAZEPINE 300MG TABLET PO SCH ×2 (08:06→21:08)
[2020-05-07] MEDS: NICOTINE 21 MG/24 HR PATCH.TD24 TD SCH (08:06)
[2020-05-07 13:50] VITALS: BP 126/71
[2020-05-07] MEDS: ENOXAPARIN 40 MG/0.4 ML SQ SCH (17:14)
[2020-05-07 19:23] VITALS: BP 120/67
[2020-05-07] MEDS: PAROXETINE 20 MG TABLET PO SCH (21:08)
[2020-05-07] MEDS: ZOLPIDEM 10MG TABLET PO SCH (21:08)
[2020-05-08 02:59] VITALS: BP 116/62
[2020-05-08 05:25] LABS: ANION GAP 7 mmol/L (5-15); CALCIUM 8.1 mg/dL (8.5-10.1); CHLORIDE 108 mmol/L (98-107); CREATININE 0.56 mg/dL (0.55-1.02)
[2020-05-08 05:33] LABS: FREE T4 (FREE THYROXINE) 1.03 ng/dL (0.76-1.46)
[2020-05-08 07:32] VITALS: BP 135/88
[2020-05-08] MEDS: NICOTINE 21 MG/24 HR PATCH.TD24 TD SCH (08:50)
[2020-05-08] MEDS: LORazepam 0.5MG TABLET PO SCH (08:52)
[2020-05-08] MEDS: RISPERIDONE 2 MG TABLET PO SCH (08:52)
[2020-05-08] MEDS: OXCARBAZEPINE 300MG TABLET PO SCH (08:52)
[2020-05-08] MEDS: BUSPIRONE 10 MG TABLET PO SCH (08:55)
[2020-05-08] MEDS ORDERED: HYDROXYZINE PAMOATE 25MG CAP ONE (08:57)
[2020-05-08] MEDS: ALBUTEROL HFA 90 MCG/SPRAY INH PRN ×2 (09:19→14:49)
[2020-05-08 12:36] VITALS: BP 136/87
[2020-05-08] MEDS ORDERED: ALBU18HF INH (14:14)
[2020-05-08] MEDS ORDERED: CLON-364 PO (14:14)
== END 2020-05-08 16:45 | disposition home or self-care (01) | DRG 641 ==
LOC: ED 19:17 → EDIP 19:22 → ED 19:32 → 4WST 20:34 → DCLOUNGE 05-08 16:33
PROVIDERS: ADMIT Emergency Medicine; ATTEND Internal Medicine
DX: E87.1 Hypo-osmolality and hyponatremia (principal); F31.9 Bipolar disorder, unspecified; F17.210 Nicotine dependence, cigarettes, uncomplicated; G89.29 Other chronic pain; J44.9 Chronic obstructive pulmonary disease, unspecified; F41.1 Generalized anxiety disorder; F20.9 Schizophrenia, unspecified; Z88.2 Allergy status to sulfonamides; Z88.5 Allergy status to narcotic agent; Z88.8 Allergy status to other drugs, medicaments and biological substances; Z79.899 Other long term (current) drug therapy
CPT/HCPCS: 36415; 36600; 71046; 80048; 80053; 80299; 80307; 80320; 80329; 81001; 82803; 83735; 83930; 83935; 84100; 84439; 84443; 84481; 85025; 87086; 99285; G0378; J1650; G0480; J7030

== ENCOUNTER 2020-06-28 08:00 | Emergency (ER) | payer MEDICAID ==
[~2020-06-28] VITALS: Ht 165.1 cm; Wt 55.0 kg
[~2020-06-28 08:00] MED LIST changes: +ALBU18HF INH; +BUSP30TA PO; +CLON-364 PO; +HYDR50CA2 PO; +LORA-445 PO; +NICO-587 TP; +OXCA600T10 PO; +PARO40TA3 PO; +RISP2TAB80 PO; +ZOLP10TA PO; +albuterol
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
[2020-06-28] MEDS ORDERED: LORazepam 2 MG/ML, 1ML ONE (08:09)
--- NOTE | 2020-06-28 08:13 | NUR ---
PT MEDICATED PER EMAR, IMMEDIATELY REQUESTING TO USE BR. PT AMBULATORY W/ A STEADY GAIT. STANDY BY ASSIST.
--- NOTE | 2020-06-28 08:19 | NUR ---
PT RETURNED TO ROOM W/O INCIDENT. CONNECTED TO MONITORING, SHOWED PT HOW TO DC SELF FROM MONITORING FOR SAFETY. PT PROVIDED W/ WATER AND LIGHTS TURNED DOWN FOR COMFORT. CURTAIN LEFT OPEN PER PT REQUEST.
[2020-06-28] MEDS ORDERED: LORazepam 2 MG/ML, 1ML IVPush ONE (08:30)
--- NOTE | 2020-06-28 09:08 | NUR ---
PT RESTING MUCH MORE COMFORTABLY ON GURNEY, EYES CLOSED, EASILY AROUSED. RESP EVEN AND UNLABORED, NADN.
[2020-06-28 09:55] VITALS: BP 144/82
== END 2020-06-28 10:15 | disposition home or self-care (01) ==
LOC: ED 09:10
DX: F41.1 Generalized anxiety disorder (principal); J44.9 Chronic obstructive pulmonary disease, unspecified
CPT/HCPCS: 96374; 99283; J2060

== ENCOUNTER 2020-07-10 23:44 | Emergency (ER) | payer MEDICAID ==
[~2020-07-10] VITALS: Ht 165.1 cm; Wt 50.9 kg
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
[2020-07-11 00:13] LABS: BASOPHILS % (AUTO) 1 % (0-1); EOSINOPHILS % (AUTO) 1 % (1-7); LYMPHOCYTES % (AUTO) 19 % (22-44); MEAN CORPUSCULAR HEMOGLOBIN 30.9 pg (27.0-34.8); MEAN CORPUSCULAR HGB CONC 33.6 g/dL (32.4-35.8); MEAN PLATELET VOLUME 6.8 fL (7.4-10.4); MONOCYTES % (AUTO) 12 % (2-9); NEUTROPHILS % (AUTO) 67 % (42-75); PLATELET COUNT 254 x10^3/uL (130-400); RED BLOOD COUNT 4.13 x10^6/uL (3.82-5.3); RED CELL DISTRIBUTION WIDTH 13.4 % (9.6-15.2)
[2020-07-11 00:18] LABS: ALBUMIN 3.5 g/dL (3.4-5.0); ANION GAP 6 mmol/L (5-15); CALCIUM 7.8 mg/dL (8.5-10.1); CHLORIDE 104 mmol/L (98-107); SALICYLATE LEVEL 4.9 mg/dL (2.8-20.0)
[2020-07-11 00:20] LABS: MD NO
[2020-07-11 00:21] LABS: ALANINE AMINOTRANSFERASE 23 U/L (12-78); ALKALINE PHOSPHATASE 121 U/L (45-117); BILIRUBIN,TOTAL 0.2 mg/dL (0.2-1.0); CREATININE 0.63 mg/dL (0.55-1.02); TOTAL PROTEIN 6.3 g/dL (6.4-8.2)
--- NOTE | 2020-07-11 01:07 | NUR ---
Note don in EDM - 07/11/20 at 0108 by FIDEL Gave report from Cliff Sadler, assume care at this time. Pt calm resting in bed on cont spo2 at 100%.
--- NOTE | 2020-07-11 01:08 | NUR ---
REPORT TO AMANDA LAM
--- NOTE | 2020-07-11 01:08 | NUR ---
Took report from Cliff Sadler, assume care at this time. Pt calm resting in bed on cont spo2 at 100%.
[2020-07-11] MEDS ORDERED: NALOXONE 1 MG/ML, 2ML ONE (02:21)
[2020-07-11] MEDS ORDERED: NALOXONE 1 MG/ML, 2ML IVPush ONE (02:30)
--- NOTE | 2020-07-11 02:34 | NUR ---
PT ALERT AFTER MD RONALDO NOTIFIED
[2020-07-11 04:36] VITALS: BP 124/74
== END 2020-07-11 04:38 | disposition home or self-care (01) ==
LOC: ED 07-11 00:56
DX: T40.1X1A Poisoning by heroin, accidental (unintentional), initial encounter (principal); F11.129 Opioid abuse with intoxication, unspecified; Y92.9 Unspecified place or not applicable
CPT/HCPCS: 36415; 80053; 80299; 80320; 85025; 96374; 99283; J2310; 80329; G0480

== ENCOUNTER 2020-07-12 21:09 | Emergency (ER) | payer MEDICAID ==
--- NOTE | 2020-07-12 21:15 | NUR ---
CALLED FOR PT. PT NOT IN LOBBY
--- NOTE | 2020-07-12 21:18 | NUR ---
CALLED FOR PT. PT NOT IN LOBBY
--- NOTE | 2020-07-12 21:25 | NUR ---
CALLED FOR PT. PT NOT IN LOBBY
--- NOTE | 2020-07-12 21:41 | NUR ---
CALLED FOR PT. PT NOT IN LOBBY
== END 2020-07-12 21:43 | disposition left against medical advice (07) ==
LOC: ED 21:10
DX: R42 Dizziness and giddiness (principal); R53.1 Weakness; Z53.21 Procedure and treatment not carried out due to patient leaving prior to being seen by health care provider

== ENCOUNTER 2020-07-12 23:52 | Emergency (ER) | payer MEDICAID ==
--- NOTE | 2020-07-12 23:59 | NUR ---
CALLED FOR PT. PT NOT IN LOBBY
--- NOTE | 2020-07-13 00:08 | NUR ---
CALLED FOR PT. PT NOT IN LOBBY
--- NOTE | 2020-07-13 00:28 | NUR ---
CALLED FOR PT. PT NOT IN LOBBY
== END 2020-07-13 00:34 | disposition left against medical advice (07) ==
LOC: ED 07-13 00:10
DX: Z53.21 Procedure and treatment not carried out due to patient leaving prior to being seen by health care provider (principal)

== ENCOUNTER 2020-08-05 04:25 | Emergency (ER) | payer MEDICAID ==
[~2020-08-05] VITALS: Ht 165.1 cm; Wt 54.5 kg
[2020-08-05] MEDS ORDERED: ZIPRASIDONE 20 MG INJ IM ONE ×2 (04:30→04:40)
--- NOTE | 2020-08-05 04:49 | NUR ---
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
--- NOTE | 2020-08-05 04:58 | NUR ---
PT SLEEPING, NAD
--- NOTE | 2020-08-05 05:36 | NUR ---
PT ASLEEP IN BED, ALL NEEDS IN REACH, CALL LIGHT IN REACH, NAD, VITALS STABLE
[2020-08-05 06:58] VITALS: BP 124/78
== END 2020-08-05 07:00 | disposition home or self-care (01) ==
LOC: ED 05:59
DX: F15.159 Other stimulant abuse with stimulant-induced psychotic disorder, unspecified (principal); F15.129 Other stimulant abuse with intoxication, unspecified; F17.210 Nicotine dependence, cigarettes, uncomplicated; J44.9 Chronic obstructive pulmonary disease, unspecified
CPT/HCPCS: 96372; 99283; 99406; J3486

== ENCOUNTER 2020-08-16 22:12 | Emergency (ER) | payer MEDICAID ==
[~2020-08-16] VITALS: Ht 165.1 cm; Wt 47.0 kg
[2020-08-16 22:19] VITALS: BP 119/74
--- NOTE | 2020-08-16 22:19 | NUR ---
pt bib [facility], found somulant on bench by and Nyla. pt stating short of breath. pt had half a breathing treatment on way to hospital. pt in gown, resting on gurney, and placed on continuous monitoring, ekg done. erp at bedside.
[2020-08-16] MEDS ORDERED: ONDANSETRON ODT 4 MG ONE (22:53)
[2020-08-16] MEDS ORDERED: ONDANSETRON ODT 4 MG PO ONE (23:00)
--- NOTE | 2020-08-16 23:06 | NUR ---
pt left before this rn could give pt zofran.
--- NOTE | 2020-08-16 23:06 | NUR ---
pt wanted zofran before d/c
--- NOTE | 2020-08-16 23:06 | NUR ---
Patient given discharge instructions and they have confirmed that they understand the instructions. Patient ambulatory with steady gait.
== END 2020-08-16 23:09 | disposition home or self-care (01) ==
LOC: ED 22:45
DX: J44.1 Chronic obstructive pulmonary disease with (acute) exacerbation (principal); Z72.9 Problem related to lifestyle, unspecified; F17.210 Nicotine dependence, cigarettes, uncomplicated
CPT/HCPCS: 93005; 99406

== ENCOUNTER 2020-08-23 01:09 | Emergency (ER) | payer MEDICAID ==
[~2020-08-23] VITALS: Ht 165.1 cm; Wt 45.0 kg
[2020-08-23 01:19] VITALS: BP 200/98
--- NOTE | 2020-08-23 01:22 | NUR ---
PT BIB [facility] TO ROOM 40, FOR COMPLAINT OF SHORTNESS OF BREATH. PT IS A 1 PACK A DAY SMOKER. PT SAYS SHE BEGAN HAVING TROUBLE LAST WEEK WHEN SHE WAS "[place]" WHILE SHE WAS MINDING HER OWN BUSINESS AND WASHING [place] CLOTHES [place]. PT CRYING NON STOP AND FINALLY CALMED DOWN FOR THE EKG. PT ON CR MONITOR, REMAINS ON O2 NC 3 LPM, FOR O2 SATS OF 89%. SIDERAILS UP X2 AND CALL LIGHT WITHIN REACH.
--- NOTE | 2020-08-23 02:40 | NUR ---
PT SLEEPING IN GURNEY. ON CR MONITOR, AND PT PLACED TO ROOM AIR, WITH O2 OFF AND IS O2 SATS ARE 95%. PT IN NO RESPIRATORY DISTRESS AT THIS TIME.
== END 2020-08-23 02:51 | disposition home or self-care (01) ==
LOC: ED 02:09
DX: J44.9 Chronic obstructive pulmonary disease, unspecified (principal); Z76.0 Encounter for issue of repeat prescription; F17.210 Nicotine dependence, cigarettes, uncomplicated
CPT/HCPCS: 71045; 93005; 99406

== ENCOUNTER 2020-08-24 01:52 | Emergency (ER) | payer MEDICAID ==
[~2020-08-24] VITALS: Ht 165.1 cm; Wt 50.0 kg
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
[2020-08-24 02:25] LABS: HCG UR SG 1.036 (1.003-1.030)
[2020-08-24 02:38] LABS: MICROSCOPIC INDICATED
--- NOTE | 2020-08-24 02:54 | NUR ---
Pt refused BP
[2020-08-24] MEDS ORDERED: CEFTRIAXONE 1,000 MG ONE (02:59)
[2020-08-24] MEDS ORDERED: DOXYCYCLINE 100MG TABLET PO ONE (03:00)
[2020-08-24] MEDS ORDERED: CEFTRIAXONE 1,000 MG IM ONE (03:00)
[2020-08-24] MEDS ORDERED: DOXYCYCLINE 100MG TABLET ONE (03:00)
[2020-08-24 03:05] LABS: CLUE CELLS NONE SEEN (NONE SEEN); WET PREP WBCS MODERATE (FEW)
[2020-08-24] MEDS ORDERED: metroNIDAZOLE 500 MG TABLET PO ONE (03:30)
[2020-08-24] MEDS ORDERED: metroNIDAZOLE 500 MG TABLET ONE (03:33)
[2020-08-24 04:11] VITALS: BP 102/69
== END 2020-08-24 04:23 | disposition home or self-care (01) ==
LOC: ED 04:17
DX: A54.03 Gonococcal cervicitis, unspecified (principal); A59.09 Other urogenital trichomoniasis; A56.09 Other chlamydial infection of lower genitourinary tract; R30.0 Dysuria; N89.8 Other specified noninflammatory disorders of vagina; F17.210 Nicotine dependence, cigarettes, uncomplicated; F15.10 Other stimulant abuse, uncomplicated; J44.9 Chronic obstructive pulmonary disease, unspecified
CPT/HCPCS: 81001; 81025; 87086; 87210; 87491; 87591; 87808; 96372; 99284; 99406; J0696

== ENCOUNTER 2020-08-24 11:11 | Emergency (ER) | payer MEDICAID ==
[~2020-08-24] VITALS: Ht 165.1 cm; Wt 46.4 kg
[2020-08-24 11:15] VITALS: BP 123/79
== END 2020-08-24 12:42 | disposition home or self-care (01) ==
LOC: ED 11:47
DX: J44.9 Chronic obstructive pulmonary disease, unspecified (principal); Z76.0 Encounter for issue of repeat prescription
CPT/HCPCS: 99281

== ENCOUNTER 2020-08-25 23:51 | Emergency (ER) | payer MEDICAID | END 2020-09-02 12:23 | LOC: ED 09-01 12:15 | DX: Z02.9 Encounter for administrative examinations, unspecified (principal) ==

== ENCOUNTER 2020-08-25 23:53 | Emergency (ER) | payer MEDICAID ==
[~2020-08-25] VITALS: Ht 165.1 cm; Wt 50.0 kg
[2020-08-25 23:57] VITALS: BP 137/79
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
--- NOTE | 2020-08-26 00:33 | NUR ---
AFTER LAST NOTE THIS RN WAS ABLE TO TALK PT. INTO GOING BACK TO HER ROOM FOR A PROVIDER TO SEE HER. PT. AGREEABLE AT THAT TIME. PT. OUT OF ROOM AGAIN STATING THAT SHE IS LEAVING. BANDAID PROVIDED.
== END 2020-08-26 00:55 ==
LOC: ED 08-26 00:01
DX: S61.451A Open bite of right hand, initial encounter (principal); J44.9 Chronic obstructive pulmonary disease, unspecified; Z90.89 Acquired absence of other organs; Z88.2 Allergy status to sulfonamides; Z59.0 Homelessness; W54.0XXA Bitten by dog, initial encounter; Y93.89 Activity, other specified; Y92.410 Unspecified street and highway as the place of occurrence of the external cause; Y99.8 Other external cause status
CPT/HCPCS: 99283

== ENCOUNTER 2020-08-26 18:02 | Emergency (ER) | payer MEDICAID ==
[~2020-08-26] VITALS: Ht 165.1 cm; Wt 52.0 kg
[2020-08-26 18:12] VITALS: BP 114/74
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
--- NOTE | 2020-08-26 18:50 | NUR ---
report from aida lowe
--- NOTE | 2020-08-26 18:50 | NUR ---
SBAR REPORT GIVEN TO DERIAN.
[2020-08-26] MEDS ORDERED: MAALOX/HYOSCYAMINE/LIDOCAINE 45 ML BTL PO ONE (20:00)
[2020-08-26] MEDS ORDERED: MAALOX/HYOSCYAMINE/LIDOCAINE 45 ML BTL ONE (20:27)
--- NOTE | 2020-08-26 20:37 | NUR ---
pt thowing items around in room. escorted out by security.
== END 2020-08-26 20:39 | disposition home or self-care (01) ==
LOC: ED 18:30
DX: J43.9 Emphysema, unspecified (principal); Z76.0 Encounter for issue of repeat prescription; Z90.89 Acquired absence of other organs
CPT/HCPCS: 99283

== ENCOUNTER 2020-09-27 00:13 | Emergency (ER) | payer MEDICAID ==
[~2020-09-27] VITALS: Ht 165.1 cm; Wt 50.0 kg
--- NOTE | 2020-09-27 00:43 | NUR ---
ASSUMED CARE OF PATIENT. PATIENT RODERICK BRAVO FROM [facility]. PT REPORTS SHE WENT THERE TO GET HELP FOR HER ABD PAIN. PT CRYING AND ANXIOUS, AND TALKING RAPIDLY. PT DENIES SI, HI. VS STABLE. PT SEEN BY DR JEAN. ABD DISTENDED. STRAIGHT CATH DONE. URINE OUTPUT 500 ML. CALL LIGHT IN PLACE. LAB IN ROOM. WILL CONTINUE TO MONITOR.
[2020-09-27 00:49] LABS: BASOPHILS % (AUTO) 1 % (0-1); EOSINOPHILS % (AUTO) 1 % (1-7); LYMPHOCYTES % (AUTO) 22 % (22-44); MEAN CORPUSCULAR HEMOGLOBIN 30.4 pg (27.0-34.8); MEAN CORPUSCULAR HGB CONC 33.6 g/dL (32.4-35.8); MEAN PLATELET VOLUME 7.7 fL (7.4-10.4); MONOCYTES % (AUTO) 11 % (2-9); NEUTROPHILS % (AUTO) 66 % (42-75); PLATELET COUNT 212 x10^3/uL (130-400); RED BLOOD COUNT 4.58 x10^6/uL (3.82-5.3); RED CELL DISTRIBUTION WIDTH 14.5 % (9.6-15.2)
--- NOTE | 2020-09-27 01:00 | NUR ---
PT IS BACK FROM CT. PT RESTING IN ROOM. VS STABLE. NO ACUTE DISTRESS NOTED. CALL LIGHT IN PLACE WILL CONTINUE TO MONITOR.
[2020-09-27 01:02] LABS: ALANINE AMINOTRANSFERASE 26 U/L (12-78); ALBUMIN 3.6 g/dL (3.4-5.0); ANION GAP 7 mmol/L (5-15); CALCIUM 8.6 mg/dL (8.5-10.1); CHLORIDE 107 mmol/L (98-107); CREATININE 0.67 mg/dL (0.55-1.02)
[2020-09-27 01:04] LABS: ALKALINE PHOSPHATASE 169 U/L (45-117); BILIRUBIN,TOTAL 0.3 mg/dL (0.2-1.0)
[2020-09-27 01:16] LABS: MICROSCOPIC AUTO
--- NOTE | 2020-09-27 01:25 | NUR ---
PT RESTING IN ROOM. VS STABLE. NO ACUTE DISTRESS NOTED. CALL LIGHT IN PLACE. WILL CONTINUE TO MONITOR.
[2020-09-27 01:55] VITALS: BP 100/60
--- NOTE | 2020-09-27 02:05 | NUR ---
REPORT FROM CAROLE MANRIQUEZ
--- NOTE | 2020-09-27 02:09 | NUR ---
REPOERT GIVEN TO CAROLE CONWAY
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
== END 2020-09-27 03:14 | disposition home or self-care (01) ==
LOC: ED 00:45
DX: N30.00 Acute cystitis without hematuria (principal); R33.9 Retention of urine, unspecified; R10.84 Generalized abdominal pain; F15.10 Other stimulant abuse, uncomplicated; Z72.9 Problem related to lifestyle, unspecified
CPT/HCPCS: 36415; 80053; 81001; 83690; 85025; 87086; 99283; 99284

== ENCOUNTER 2020-10-29 22:40 | Emergency (ER) | payer MEDICAID ==
[~2020-10-29] VITALS: Ht 165.1 cm; Wt 47.7 kg
[2020-10-29 22:44] VITALS: BP 139/100
--- NOTE | 2020-10-29 22:45 | NUR ---
INITIAl PT CONTACT. PT BIBA C/O "NEEDING A GENERAL EXAM" PER EMS, NO MEDICAL COMPLAINTS. EMS STATES PT HAS BEEN MISSING FROM FAMILY FOR A YEAR AND THEY FOUND HER TODAY AND STATE SHE NEEDS TO BE SEEN. PT MANIC AND CONTINUOUSLY RAMBLING UPON ARRIVAL. WHEN ASKED A&O QUESTIONS, PT A&OX4 AND ABLE TO CONVERSE APPROPRIATELY. PT DENIES HI/SI. PT ASKED ALL ASSESSMENT QUESTIONS AND THEN BECAME INCREASINGLY AGITIATED STATING, "I NEED TO LEAVE, I DON'T NEED TO BE HERE AND I DON'T WANT TO BE HERE. THERE IS NOTHING WRONG WITH ME, I JUST WANT TO GET ALL MY STUFF AND LEAVE. GO SLEEP IN A SECRET SPOT. IT IS PAST MY BEDTIME." PT UNWILLING TO COOPERATE FURTHER WITH EXAM AND ERP. PT GRABBED BELONGINGS AND DEPARTED ED, UNWILLING TO STAY FOR FURTHER EVAL AND TREATMENT. ERP AWARE AND AMBULATORY WITH STEADY GAIT OUT OF ED.
== END 2020-10-29 23:07 | disposition left against medical advice (07) ==
LOC: ED 23:00
DX: F41.1 Generalized anxiety disorder (principal); Z72.9 Problem related to lifestyle, unspecified; F17.210 Nicotine dependence, cigarettes, uncomplicated; J44.9 Chronic obstructive pulmonary disease, unspecified; F31.9 Bipolar disorder, unspecified; Z88.2 Allergy status to sulfonamides; Z88.5 Allergy status to narcotic agent; Z88.8 Allergy status to other drugs, medicaments and biological substances; Z88.9 Allergy status to unspecified drugs, medicaments and biological substances
CPT/HCPCS: 99283

== ENCOUNTER 2020-11-07 16:27 | Observation (INO) | payer MEDICAID ==
[~2020-11-07] VITALS: Ht 165.1 cm; Wt 62.0 kg
--- NOTE | 2020-11-07 16:40 | NUR ---
Pt brought in by melody and ANDRA as L2K pt left home 3 months ago, hx paranoid schizo and non compliant with meds. Unable to care for self and combative with EMS.
[2020-11-07 18:00] LABS: BASOPHILS % (AUTO) 1 % (0-1); EOSINOPHILS % (AUTO) 3 % (1-7); LYMPHOCYTES % (AUTO) 24 % (22-44); MEAN CORPUSCULAR HEMOGLOBIN 29.6 pg (27.0-34.8); MEAN CORPUSCULAR HGB CONC 32.7 g/dL (32.4-35.8); MEAN PLATELET VOLUME 7.8 fL (7.4-10.4); MONOCYTES % (AUTO) 8 % (2-9); NEUTROPHILS % (AUTO) 64 % (42-75); PLATELET COUNT 193 x10^3/uL (130-400); RED BLOOD COUNT 4.63 x10^6/uL (3.82-5.3)
[2020-11-07 18:13] LABS: ALBUMIN 3.1 g/dL (3.4-5.0); ANION GAP 4 mmol/L (5-15); CALCIUM 8.4 mg/dL (8.5-10.1); CHLORIDE 107 mmol/L (98-107); SALICYLATE LEVEL 4.6 mg/dL (2.8-20.0)
[2020-11-07 18:16] LABS: ALANINE AMINOTRANSFERASE 23 U/L (12-78); ALKALINE PHOSPHATASE 206 U/L (45-117); BILIRUBIN,TOTAL 0.4 mg/dL (0.2-1.0); CREATININE 0.45 mg/dL (0.55-1.02); TOTAL PROTEIN 6.2 g/dL (6.4-8.2)
--- NOTE | 2020-11-07 18:48 | NUR ---
BEDSIDE REPORT FROM AMY RN, TRANSFER OF CARE AT THIS TIME. PT ON EDVIN HAS REMOVED ALL MONITORING AND O2 AND RAISES MIDDLE FINGER AT RN WHEN QUESTIONED
[2020-11-07] MEDS ORDERED: OLANZAPINE 10 MG INJ IM PRN (19:30)
[2020-11-07] MEDS ORDERED: PAROXETINE 10 MG TABLET PO SCH (19:30)
--- NOTE | 2020-11-07 19:48 | NUR ---
meds requested from pharm
--- NOTE | 2020-11-07 20:01 | NUR ---
PT RESTING ON EDVIN DUNCAN RESP EVEN UNLABORED, SITTER IN SIGHT
[2020-11-07] MEDS ORDERED: OXCARBAZEPINE 150 MG TABLET PO SCH (21:00)
[2020-11-07] MEDS ORDERED: RISPERIDONE 1 MG TABLET PO SCH (21:00)
[2020-11-07] MEDS ORDERED: GABAPENTIN 300 MG CAPSULE PO SCH (21:00)
--- NOTE | 2020-11-07 21:05 | NUR ---
PT RESTING ON EDVIN DUNCAN RESP EVEN UNLABORED, SITTER IN SIGHT
--- NOTE | 2020-11-07 22:19 | NUR ---
PT RESTING ON EDVIN DUNCAN RESP EVEN UNLABORED, SITTER IN SIGHT
--- NOTE | 2020-11-07 22:40 | NUR ---
PT UP TO RESTROOM, STEADY GAIT REQ WATER AND CRACKERS AND SPRITE AND MORE "BLANKIES AND TV TIME", PT PROVIDED WITH REQUESTS DENIES FURTHER NEEDS HOWEVER REFUSING PO MEDS AT THIS TIME STS I DONT NEED THOSE
[2020-11-07 22:54] VITALS: BP 139/86
--- NOTE | 2020-11-07 23:43 | NUR ---
PT RESTING ON GURKIRAN NADRonen RESP EVEN UNLABORED NO NEEDS VERBALIZED SITTER IN SIGHT
--- NOTE | 2020-11-07 23:50 | NUR ---
ERP UPDATED THAT PT REFUSING MEDS, NO NEW ORDERS OR CHANGES TO BE MADE PER CONVERSATION WITH DR VILLALOBOS.
--- NOTE | 2020-11-08 01:07 | NUR ---
PT RESTING ON GURKIRAN NADN RESP EVEN UNLABORED NO NEEDS AT THIS TIME. SITTER IN SIGHT
--- NOTE | 2020-11-08 01:59 | NUR ---
Packet faxed to [facility] for first dibs.
--- NOTE | 2020-11-08 02:02 | NUR ---
PT SHOUTING AT STAFF AND CONTINUES TO REFUSE MEDS, PT NOW WANTS MORE CRACKERS AND WATER AND TV. PT PROVIDED THESE THINGS.
--- NOTE | 2020-11-08 03:00 | NUR ---
PT RESTING ON GURKIRAN NADN RESP EVEN UNLABORED NO NEEDS AT THIS TIME. SITTER IN SIGHT
--- NOTE | 2020-11-08 04:00 | NUR ---
PT RESTING ON GURKIRAN NADN RESP EVEN UNLABORED NO NEEDS AT THIS TIME. SITTER IN SIGHT
--- NOTE | 2020-11-08 05:00 | NUR ---
PT RESTING ON GURKIRAN NADN RESP EVEN UNLABORED NO NEEDS AT THIS TIME. SITTER IN SIGHT
--- NOTE | 2020-11-08 05:27 | NUR ---
Packet faxed to Yolanda WADE, [facility], THUAN.
--- NOTE | 2020-11-08 05:45 | NUR ---
[facility] accepts. Accepting doctor is Dr. Brandon.
--- NOTE | 2020-11-08 06:00 | NUR ---
PT RESTING ON GURKIRAN NADN RESP EVEN UNLABORED NO NEEDS AT THIS TIME. SITTER IN SIGHT
--- NOTE | 2020-11-08 07:00 | NUR ---
REPORT RECEIVED, CARE ASSUMED. PT AMB TO BR, GAIT STEADY. PT WITH PO FLUIDS AT BEDSIDE. SITTER WITHIN SIGHT. REFUSED V/S. AWAITING TRANSFER TO [facility]ILITY
--- NOTE | 2020-11-08 07:22 | NUR ---
9 AM MEDS REQUESTED BY PHARMACY Addendum: 11/08/20 at 0908 by HEBERT FROM PHARMACY
[2020-11-08] MEDS ORDERED: GABAPENTIN 300 MG CAPSULE ONE (08:14)
--- NOTE | 2020-11-08 08:28 | NUR ---
PT DOZING INTERMITTENTLY, AROUSES EASILY. PT TOOK AM MEDS. AWARE OF WAITING FOR RISPERIDONE TO COME FROM PHARMACY. PT PROVIDED WITH BREAKFAST. CONT IN SECURE ROOM WITH SITTER IN SIGHT. CONT TO WAIT FOR FURTHER DISPOSITION.
--- NOTE | 2020-11-08 09:07 | NUR ---
EMS HERE TO TRANSPORT PT. REPORT GIVEN. 1 BAG OF BELONGINGS GIVEN TO EMS.
== END 2020-11-08 09:11 | disposition home or self-care (01) ==
LOC: ED 17:08 → EDIP 19:35
PROVIDERS: ADMIT Emergency Medicine; ATTEND Emergency Medicine
DX: F31.9 Bipolar disorder, unspecified (principal); F20.9 Schizophrenia, unspecified; R62.7 Adult failure to thrive; R41.82 Altered mental status, unspecified; F64.9 Gender identity disorder, unspecified; F17.200 Nicotine dependence, unspecified, uncomplicated; Z79.899 Other long term (current) drug therapy; Z91.14 Patient's other noncompliance with medication regimen; Z63.8 Other specified problems related to primary support group
CPT/HCPCS: 36415; 80053; 80299; 80320; 80329; 85025; 99284; G0378; G0480

== ENCOUNTER 2020-11-23 22:35 | Emergency (ER) | payer MEDICAID ==
[~2020-11-23] VITALS: Ht 165.1 cm; Wt 48.0 kg
[2020-11-23 22:41] VITALS: BP 142/88
--- NOTE | 2020-11-24 03:48 | NUR ---
PT CALLED FOR ROOM. NA X 1
--- NOTE | 2020-11-24 04:14 | NUR ---
NA X 2
--- NOTE | 2020-11-24 04:45 | NUR ---
NA X 3
== END 2020-11-24 04:46 | disposition left against medical advice (07) ==
LOC: ED 23:05
DX: R11.2 Nausea with vomiting, unspecified (principal); R19.7 Diarrhea, unspecified; Z53.21 Procedure and treatment not carried out due to patient leaving prior to being seen by health care provider

== ENCOUNTER 2020-11-26 01:14 | Emergency (ER) | payer MEDICAID ==
[~2020-11-26] VITALS: Ht 165.1 cm; Wt 50.0 kg
[2020-11-26 01:16] VITALS: BP 147/88
== END 2020-11-26 03:04 | disposition home or self-care (01) ==
LOC: ED 02:58
DX: R05 Cough (principal); J44.1 Chronic obstructive pulmonary disease with (acute) exacerbation; F17.200 Nicotine dependence, unspecified, uncomplicated